=== PATIENT | female | born 1935 | race Caucasian/White ===

== ENCOUNTER 2024-04-18 05:57 | Inpatient (IN) | payer MEDICARE, OTHER ==
[~2024-04-18] VITALS: Ht 167.6 cm; Wt 75.0 kg
[2024-04-18] MEDS: Magnesium 1 GM/2 ML VIAL IV ONE (06:24)
[2024-04-18 06:30] LABS: BASOPHILS % (AUTO) 0.1 % (0.0-2.0); EOSINOPHILS % (AUTO) 0.1 % (0.0-6.0); HEMATOCRIT 34 % (33-45); HEMOGLOBIN 11.9 g/dL (11.5-14.8); LYMPHOCYTES # (AUTO) 0.9 K/uL (0.8-4.8); LYMPHOCYTES % (AUTO) 18.6 % (20.0-44.0); MEAN CORPUSCULAR HEMOGLOBIN 29 PG (26.0-33.0); MEAN CORPUSCULAR HGB CONC 35 g/dl (31.0-36.0); MEAN CORPUSCULAR VOLUME 85 fL (82-100); MONOCYTES # (AUTO) 0.5 K/uL (0.1-1.30); MONOCYTES % (AUTO) 9.9 % (2.0-12.0); NEUTROPHILS # (AUTO) 3.4 K/uL (1.8-8.9); NEUTROPHILS % (AUTO) 71.3 % (43.0-81.0); PLATELET COUNT (AUTO) 175 K/uL (150-450); RED BLOOD CELL COUNT(AUTO) 4.05 MIL/uL (4.0-5.2); RED CELL DISTRIBUTION WIDTH 16.5 % (11.5-15.0); WHITE BLOOD COUNT (AUTO) 4.8 K/uL (4.3-11.0)
[2024-04-18] MEDS: AMIODARONE 450 MG in IV D5W 250 ML IV ONE (06:30)
[2024-04-18 06:39] LABS: CARBON DIOXIDE 25 mmol/L (21-32); CHLORIDE 102 mmol/L (98-107); CREATININE 0.9 mg/dL (0.6-1.3); GLUCOSE 171 mg/dL (74-106); POTASSIUM 3.9 mmol/L (3.5-5.1); SODIUM SERUM 134 mmol/L (136-145); UREA NITROGEN, BLOOD 21 mg/dL (7-18)
[2024-04-18 06:53] LABS: MAGNESIUM 2.4 mg/dL (1.8-2.4); PHOSPHORUS 2.7 mg/dL (2.5-4.9)
[2024-04-18] MEDS: AMIODARONE 150 MG in IV D5W 100 ML IV ONE (07:05)
[2024-04-18 07:33] LABS: BAND % (MANUAL) 3 % (0.0-5.0); LYMPHOCYTES % (MANUAL) 22 % (16-48); MONOCYTES % (MANUAL) 7 % (0-11.0); MYELOCYTES % 2 % (0-0); NEUTROPHILS % (MANUAL) 66 (42-76); PLATELET ESTIMATE ADEQUATE
[2024-04-18 07:34] LABS: OVALOCYTES 1+
[2024-04-18 09:15] VITALS: BP 133/80; TEMP 97.7; O2SAT 97
[2024-04-18] MEDS ORDERED: DEXTROSE 50%-WATER 50 ML DISP.SYRIN IV PRN (09:30)
[2024-04-18] MEDS ORDERED: ACETAMINOPHEN 325 MG TABLET PO PRN (09:30)
[2024-04-18] MEDS ORDERED: ONDANSETRON HCL/PF 4 MG/2 ML VIAL IVP PRN (09:30)
[2024-04-18] MEDS ORDERED: AMIODARONE 150 MG in IV D5W 100 ML IV ONE (12:00)
[2024-04-18] MEDS ORDERED: CALC-341 PO (12:13)
[2024-04-18] MEDS ORDERED: UBID300C PO (12:13)
[2024-04-18] MEDS ORDERED: CRAN650C PO (12:13)
[2024-04-18] MEDS ORDERED: CHOL200059 PO (12:13)
[2024-04-18] MEDS ORDERED: LEVO75TA99 PO (12:13)
[2024-04-18] MEDS ORDERED: ASPI-1094 PO (12:13)
[2024-04-18] MEDS ORDERED: PROP60CA2 PO (12:13)
[2024-04-18] MEDS ORDERED: PITA4TAB PO (12:13)
[2024-04-18] MEDS ORDERED: AMLO-212 PO (12:13)
[2024-04-18] MEDS ORDERED: NEBI2.5T5 PO (12:13)
[2024-04-18] MEDS ORDERED: ESCI10TA PO (12:13)
[2024-04-18] MEDS ORDERED: LACT1CAP94 PO (12:13)
[2024-04-18] MEDS ORDERED: LINA5TAB PO (12:13)
[2024-04-18] MEDS ORDERED: OLME40TA18 PO (12:13)
[2024-04-18] MEDS: AMIODARONE 450 MG in IV D5W 241 ML IV PRN (12:15)
[2024-04-18] MEDS ORDERED: ENOXAPARIN SODIUM 80 MG/0.8 ML DISP.SYRIN SQ SCH (12:30)
[2024-04-18] MEDS: BLOOD SUGAR DIAGNOSTIC 1 EACH STRIP IN SCH (12:49)
[2024-04-18] MEDS: INSULIN REGULAR, HUMAN 100 UNIT/ML 3 ML VIAL SQ PRN (12:50)
[2024-04-18 13:00] VITALS: BP 127/92; TEMP 97.5; O2SAT 98
[2024-04-18] MEDS: ENOXAPARIN SODIUM 80 MG/0.8 ML DISP.SYRIN SQ SCH (13:25)
[2024-04-18 17:00] VITALS: BP 135/97; TEMP 97.7; O2SAT 99
[2024-04-18 21:00] VITALS: BP 150/57; TEMP 97.3; O2SAT 97
[2024-04-19] VITALS (7 sets, daily range): BP systolic 168–188; BP diastolic 67–76; TEMP 97.2–98; O2SAT 98–100
[2024-04-19] MEDS: hydrALAZINE HCL IV 20 MG VIAL IV PRN (06:52)
[2024-04-19] MEDS: ASPIRIN 81 MG TAB.CHEW PO SCH (08:32)
[2024-04-19] MEDS: CHOLECALCIFEROL 1,000 UNIT TABLET (VIT D3) PO SCH (08:32)
[2024-04-19] MEDS: LOSARTAN POTASSIUM 50 MG TABLET PO SCH (08:32)
[2024-04-19] MEDS: AMLODIPINE BESYLATE 5 MG TABLET PO SCH (08:32)
[2024-04-19] MEDS: LACTOBACILLUS RHAMNOSUS GG 1 EACH CAP.SPRINK PO SCH (08:32)
[2024-04-19] MEDS: LEVOTHYROXINE SODIUM 75 MCG TABLET PO SCH (08:32)
[2024-04-19] MEDS: ATORVASTATIN 10 MG TABLET PO SCH (08:32)
[2024-04-19] MEDS: LINAGLIPTIN 5 MG TABLET PO SCH (08:32)
[2024-04-19] MEDS: ESCITALOPRAM OXALATE (10 MG) 10 MG TABLET PO SCH (08:33)
[2024-04-19] MEDS ORDERED: Medication Not On Formulary EA (Ubidecarenone (Co Q-10) 300 MG) PO SCH (09:00)
[2024-04-19] MEDS: PROPRANOLOL LA 60 MG CAP.SA.24H PO SCH (09:58)
[2024-04-19] MEDS: AMIODARONE HCL 200 MG TABLET PO SCH (12:22)
== END 2024-04-19 15:15 | disposition home or self-care (01) | DRG 309 ==
LOC: ER 05:59 → TELE1 08:48 → TELE-TD 11:46
PROVIDERS: ADMIT Nurse Practitioner Acute Care; ATTEND Nurse Practitioner Acute Care
DX: I48.91 Unspecified atrial fibrillation (principal); E87.1 Hypo-osmolality and hyponatremia; E03.9 Hypothyroidism, unspecified; E78.5 Hyperlipidemia, unspecified; I34.1 Nonrheumatic mitral (valve) prolapse; I44.7 Left bundle-branch block, unspecified; Z79.899 Other long term (current) drug therapy; Z79.84 Long term (current) use of oral hypoglycemic drugs; Z79.890 Hormone replacement therapy; E11.9 Type 2 diabetes mellitus without complications; I10 Essential (primary) hypertension; Z79.82 Long term (current) use of aspirin; R79.89 Other specified abnormal findings of blood chemistry
CPT/HCPCS: 36415; 71045-TC; 80048-TC; 82962-TC; 83735-TC; 83880; 84100-TC; 84443-TC; 84484-TC; 85025-TC; 93307-TC; A4223; G0378; J0282; J0360; J1650; J1815; J3475; J7060